=== PATIENT | female | born 1985 | race American Indian/Alaskan Native ===

== ENCOUNTER 2018-01-23 10:02 | Outpatient (CLI) | payer OTHER | END 2018-01-23 10:59 | disposition home or self-care (01) | LOC: NST 10:02 | DX: Z34.83 Encounter for supervision of other normal pregnancy, third trimester (principal) ==

== ENCOUNTER 2018-02-14 08:31 | Outpatient (CLI) | payer OTHER | END 2018-02-14 09:23 | disposition home or self-care (01) | LOC: NST 08:31 | DX: Z34.83 Encounter for supervision of other normal pregnancy, third trimester (principal) ==

== ENCOUNTER 2018-03-07 08:45 | Outpatient (CLI) | payer OTHER | END 2018-03-07 09:44 | disposition home or self-care (01) | LOC: NST 08:45 | DX: Z34.03 Encounter for supervision of normal first pregnancy, third trimester (principal) ==

== ENCOUNTER 2018-03-10 13:40 | Outpatient (CLI) | payer OTHER | END 2018-03-10 14:43 | disposition home or self-care (01) | LOC: NST 13:40 | DX: Z34.83 Encounter for supervision of other normal pregnancy, third trimester (principal) ==

== ENCOUNTER 2018-03-11 13:13 | Outpatient (CLI) | payer OTHER | END 2018-03-11 15:15 | disposition home or self-care (01) | LOC: NST 13:13 | DX: Z34.83 Encounter for supervision of other normal pregnancy, third trimester (principal) ==

== ENCOUNTER 2018-03-18 15:31 | Outpatient (CLI) | payer OTHER | END 2018-03-18 19:37 | disposition home or self-care (01) | LOC: NST 15:31 | DX: Z34.83 Encounter for supervision of other normal pregnancy, third trimester (principal) ==

== ENCOUNTER 2018-03-28 09:08 | Outpatient (CLI) | payer OTHER ==
[2018-03-29] MEDS ORDERED: PRENATAL 19 TA1 EACH PO (11:16)
[2018-03-29] MEDS ORDERED: NIFE60TA3 PO (11:17)
[2018-03-29] MEDS ORDERED: FOLIC ACID1 MG PO (11:17)
== END 2018-03-28 10:00 | disposition home or self-care (01) ==
LOC: NST 09:08
DX: Z34.83 Encounter for supervision of other normal pregnancy, third trimester (principal)

== ENCOUNTER 2018-03-29 10:27 | Inpatient (IN) | payer OTHER ==
[~2018-03-29] VITALS: Ht 175.3 cm; Wt 2.3 kg
[2018-03-29] MEDS ORDERED: PRENATAL 19 TA1 EACH PO (11:16)
[2018-03-29] MEDS ORDERED: NIFE60TA3 PO (11:17)
[2018-03-29] MEDS ORDERED: FOLIC ACID1 MG PO (11:17)
== END 2018-04-01 10:57 | disposition home or self-care (01) | DRG 765 ==
LOC: LDR 10:27 → OB/GYN 10:27
PROVIDERS: Obstetrics & Gynecology Maternal & Fetal Medicine
PROC: 4A033R1 Measurement of Arterial Saturation, Peripheral, Percutaneous Approach (ICD-10-PCS; 2018-03-29)
PROC: 4A1HXCZ Monitoring of Products of Conception, Cardiac Rate, External Approach (ICD-10-PCS; 2018-03-29)
PROC: 10D00Z1 Extraction of Products of Conception, Low, Open Approach (ICD-10-PCS; principal; 2018-03-29 10:00)
DX: O69.81X0 Labor and delivery complicated by cord around neck, without compression, not applicable or unspecified (principal); O98.82 Other maternal infectious and parasitic diseases complicating childbirth; O98.32 Other infections with a predominantly sexual mode of transmission complicating childbirth; B95.1 Streptococcus, group B, as the cause of diseases classified elsewhere; A63.0 Anogenital (venereal) warts; Z3A.36 36 weeks gestation of pregnancy; Z37.0 Single live birth